=== PATIENT | female | born 2000 | race Caucasian/White ===

== ENCOUNTER 2023-08-14 22:57 | Emergency (ER) | payer OTHER ==
[~2023-08-14] VITALS: Ht 170.2 cm; Wt 61.2 kg
[2023-08-15 02:41] VITALS: BP 131/66; TEMP 98.7; O2SAT 100
== END 2023-08-15 02:41 | disposition home or self-care (01) ==
LOC: ER 23:00
DX: R07.89 Other chest pain (principal); V89.2XXA Person injured in unspecified motor-vehicle accident, traffic, initial encounter; Y93.89 Activity, other specified; Y92.89 Other specified places as the place of occurrence of the external cause; Y99.8 Other external cause status
CPT/HCPCS: 71045-TC